=== PATIENT | female | born 1950 | race Caucasian/White ===

== ENCOUNTER 2021-03-20 16:38 | Outpatient (CLI) | payer MEDICARE, SELFPAY | END 2021-03-20 23:59 | disposition short-term general hospital (02) | PROVIDERS: Visit Provider Physician Assistant | DX: U07.1 COVID-19 (principal) | CPT/HCPCS: 87635; U0003; U0005 ==

== ENCOUNTER 2021-03-25 14:58 | Outpatient (CLI) | payer MEDICARE, SELFPAY ==
[2021-03-25] MEDS: 0.9% Saline Lock 10 ML Syringe IV (15:04)
[2021-03-25 15:08] VITALS: BP 134/61; PULSE 64; RESP 18; TEMP 36.4; O2SAT 97; BMI 26.3
[2021-03-25 15:50] VITALS: BP 135/65; PULSE 60; RESP 16; TEMP 36.9; O2SAT 99
[2021-03-25 16:48] VITALS: BP 146/73; PULSE 63; RESP 16; TEMP 36.9; O2SAT 100
== END 2021-03-25 23:59 | disposition home or self-care (01) ==
LOC: MS3OUT 14:59 → MS3 14:59
PROVIDERS: Referring Provider Nurse Practitioner Adult Health; Visit Provider Nurse Practitioner Adult Health
DX: Z23 Encounter for immunization (principal); U07.1 COVID-19
CPT/HCPCS: J7050; M0245; Q0245; A4216

== ENCOUNTER → 2022-08-07 | Outpatient (CLI) | payer MEDICARE, SELFPAY | END | disposition home or self-care (01) | LOC: LABSPEC 15:23 | PROVIDERS: PCP Family Medicine; Referring Provider Otolaryngology Otolaryngology/Facial Plastic Surgery; Visit Provider Otolaryngology Otolaryngology/Facial Plastic Surgery | DX: J32.9 Chronic sinusitis, unspecified (principal) | CPT/HCPCS: 87070; 87205 ==